=== PATIENT | female | born 1990 | race Asian ===

== ENCOUNTER 2017-04-09 03:57 | Outpatient (CLI) | payer OTHER | END 2017-04-09 03:58 | disposition critical access hospital (66) | LOC: EMS 03:57 | PROVIDERS: ATTEND Surgery | DX: O99.89 Other specified diseases and conditions complicating pregnancy, childbirth and the puerperium (principal); R06.02 Shortness of breath; M54.5 Low back pain | CPT/HCPCS: A0425; A0427 ==

== ENCOUNTER 2017-04-09 04:28 | Outpatient (CLI) | payer OTHER ==
[2017-04-09 04:42] VITALS: BP 105/58
[2017-04-09 05:06] LABS: BILIRUBIN,URINE NEGATIVE (NEGATIVE); GLUCOSE, URINE (UA) NEGATIVE (NEGATIVE); KETONES,URINE (UA) NEGATIVE (NEGATIVE); LEUKOCYTE ESTERASE, URINE NEGATIVE (NEGATIVE); NITRITE,URINE NEGATIVE (NEGATIVE); OCCULT BLOOD,URINE NEGATIVE (NEGATIVE); PH,URINE 6.5 PH (5.0-7.5); PROTEIN,URINE NEGATIVE (NEGATIVE); UROBILINOGEN,URINE 0.2 (NORMAL) E.U./dL (NORMAL)
[2017-04-09 05:30] LABS: BACTERIA,URINE None Seen /HPF (None Seen); CLARITY,URINE HAZY (CLEAR); RBC,URINE None Seen /HPF (0-5); SQUAMOUS EPITHELIAL CELL,UR MANY Squamous (<= Few)
[2017-04-09 06:33] LABS: BASOPHILS # (AUTO) 0.1 10^3/uL (0.0-0.1); BASOPHILS % (AUTO) 0.7 %; EOSINOPHILS # (AUTO) 0.2 10^3/uL (0.0-0.7); EOSINOPHILS % (AUTO) 1.7 %; HGB - HEMOGLOBIN 9.4 g/dL (12.0-16.0); LYMPHOCYTES # (AUTO) 2.1 10^3/uL (1.5-3.5); LYMPHOCYTES % (AUTO) 22.1 %; MEAN CORPUSCULAR HEMOGLOBIN 28.3 pg (27.0-31.0); MEAN CORPUSCULAR HGB CONC 32.4 g/dL (32.0-36.0); MEAN CORPUSCULAR VOLUME 87.2 fL (81.0-99.0); MEAN PLATELET VOLUME 7.6 fL (7.9-10.8); MONOCYTES # (AUTO) 0.6 10^3/uL (0.0-1.0); MONOCYTES % (AUTO) 6.3 %; NEUTROPHILS # (AUTO) 6.5 10^3/uL (1.5-6.6); NEUTROPHILS % (AUTO) 69.2 %; PLT - PLATELET COUNT 252 10^3/uL (130-450); RED BLOOD COUNT 3.32 10^6/uL (4.20-5.40); RED CELL DISTRIBUTION WIDTH 12.6 % (12.0-15.0); WHITE BLOOD COUNT 9.4 x10^3/uL (4.8-10.8)
--- NOTE | 2017-04-09 23:12 | Ultrasound Report ---
EXAM: ABDOMEN ULTRASOUND LIMITED, RUQ EXAM DATE: 04/09/2017 08:04 AM. CLINICAL HISTORY: Abdominal pain. Lower back pain. COMPARISON: None. TECHNIQUE: Real-time scanning was performed with static images obtained. FINDINGS: Liver: Normal in size. Echogenic echotexture. 13.1 cm. Main portal vein flow: Hepatopetal. Gallbladder: Normal. No stones, wall thickening, or sonographic Barnett's sign. Biliary System: CBD measures 3 mm. No intrahepatic or extrahepatic ductal dilatation. Other: The visualized pancreas and right kidney are unremarkable. No free fluid. IMPRESSION: 1. Unremarkable gallbladder and ducts. 2. Hepatic steatosis. [facility] Referring Provider Line: [phone] SITE ID: [id number]
--- NOTE | 2017-04-11 11:40 | HISTORY & PHYSICAL EXAMINATION ---
DATE OF SERVICE: 04/09/2017 Physician: Dayron Mcghee MD IDENTIFICATION: Mis is a 27-year-old G2, P1 female whose EDC is 05/19/2017. This makes her 34 weeks 2 days. CHIEF COMPLAINT: Right upper quadrant pain. HISTORY OF PRESENT ILLNESS: Patient last night developed right upper quadrant pain. It was quite severe in nature. It radiated to the right scapula. She gives a history of having lumpia with cheese prior to this. She states she has been having episodic right upper quadrant pain over the last month. She denies any history of any gallbladder disease or family history of any gallbladder disease. PAST MEDICAL HISTORY: Patient denies any hypertensive, diabetic, cardiac, or pulmonary disease. PAST SURGICAL HISTORY: Positive for left arm surgery at 7 years of age with skin grafting. ALLERGIES: BENZOYL PEROXIDE. CURRENT MEDICATIONS: vitamins. HABITS: She denies the use of alcohol, tobacco, or street or addictive drugs. SOCIAL HISTORY: Patient is to an [employer] duty [employer]. PHYSICAL EXAMINATION GENERAL: Patient is a well-developed, well-nourished female. She is in no acute distress at this time this morning. VITAL SIGNS: Normal at this time. HEENT: Pupils equal, round. Extraocular muscles are intact. There is no evidence of any scleral icterus. Mouth is clear. HEART: Regular rate and rhythm without murmurs. LUNGS: Lung muñoz are clear without rales or wheezes. ABDOMEN: Gravid. Uterus is nontender. There is obvious motion which was visualized. She has had a normal reactive NST. She is tender at the right upper quadrant over the gallbladder, duplicating the pain she is complaining of. There is no flank or CVA tenderness noted. STUDIES: Gallbladder ultrasound is currently pending at this time; radiologist needs to read this. IMPRESSION 1. A 27-year-old G2, P1 female, 34.2 weeks. 2. Gallbladder pain. PLAN: Patient was cautioned about eating fatty foods. At this particular time, would try not to do any kind of gallbladder surgery and need to postpone this until after the delivery of her child. She will be continuing with her appointments at the [facility]. Her next visit is to see Dr. Rocha. cc: Dr. Rocha TD: 04/09/2017 23:20 [facility]
== END 2017-04-09 09:55 | disposition home or self-care (01) ==
LOC: WFO 04:28 → FBP 04:34 → WFO 09:55
PROVIDERS: ATTEND Obstetrics & Gynecology
DX: O99.613 Diseases of the digestive system complicating pregnancy, third trimester (principal); K82.9 Disease of gallbladder, unspecified; Z3A.34 34 weeks gestation of pregnancy
CPT/HCPCS: 36415; 76705; 81001; 85025; 87086; 99214

== ENCOUNTER 2021-06-19 07:42 | Outpatient (CLI) | payer OTHER ==
--- NOTE | 2021-06-19 08:15 | XRAY Report ---
PROCEDURE: Chest 2 View X-Ray INDICATIONS: SCREENING FOR TB TECHNIQUE: 2 view(s) of the chest. COMPARISON: None. FINDINGS: SUPPORT DEVICES: None. LUNGS/PLEURA: No focal consolidation, pleural effusion or space-occupying pneumothorax. MEDIASTINUM: The cardiomediastinal silhouette is within normal limits. BONES/SOFT TISSUES: No acute abnormality. IMPRESSION: 1.No acute cardiopulmonary abnormality. Reviewed by: Kenji Jamil MD on 06/19/2021 8:14 AM PDT Approved by: Kenji Jamil MD on 06/19/2021 8:14 AM PDT Station ID: [id number]
== END 2021-06-19 23:59 | disposition home or self-care (01) ==
LOC: DI.N 07:42
PROVIDERS: ATTEND Family Medicine
DX: Z11.1 Encounter for screening for respiratory tuberculosis (principal)

== ENCOUNTER 2021-06-19 08:00 | Outpatient (CLI) | payer OTHER ==
[2021-06-19 12:46] LABS: ALBUMIN 4.2 g/dL (3.2-5.5); ALKALINE PHOSPHATASE 50 IU/L (42-121); ALT ALANINE AMINOTRANSFERASE 29 IU/L (10-60); AST ASPARTATE AMINOTRANSFERASE 30 IU/L (10-42); BILIRUBIN,TOTAL 0.6 mg/dL (0.2-1.0); TOTAL PROTEIN 7.9 g/dL (6.7-8.2)
[2021-06-19 12:54] LABS: BILIRUBIN,DIRECT < 0.1 mg/dL (0.1-0.5)
[2021-06-20 09:27] LABS: HEPATITIS B SURFACE ANTIGEN NON-REACTIVE (NON-REACTIVE)
[2021-06-22 14:03] LABS: NIL 0.03 IU/mL; TB1-NIL 0.01 IU/mL; TB2-NIL 0.03 IU/mL
== END 2021-06-19 23:59 | disposition home or self-care (01) ==
LOC: LAB.N 08:00
PROVIDERS: ATTEND Family Medicine
DX: Z11.1 Encounter for screening for respiratory tuberculosis (principal); Z13.818 Encounter for screening for other digestive system disorders
CPT/HCPCS: 36415; 80076; 86317; 86480; 86704; 86709; 87340

== ENCOUNTER 2021-10-26 08:00 | Outpatient (CLI) | payer OTHER ==
--- NOTE | 2021-10-26 15:36 | XRAY Report ---
PROCEDURE: Chest 2 View X-Ray INDICATIONS: CHEST PX TECHNIQUE: 2 view(s) of the chest. COMPARISON: None. FINDINGS: Surgical changes and devices: None. Lungs and pleura: No pleural effusions or pneumothorax. Lungs are clear. Mediastinum: Mediastinal contours are normal. Heart size is normal. Bones and chest wall: No suspicious bony abnormalities. Soft tissues appear unremarkable. IMPRESSION: No acute cardiopulmonary findings. Reviewed by: Eufemia Dorman MD on 10/26/2021 3:34 PM PDT Approved by: Eufemia Dorman MD on 10/26/2021 3:34 PM PDT Station ID: [id number]
== END 2021-10-26 23:59 | disposition home or self-care (01) ==
LOC: DI.N 08:00
PROVIDERS: ATTEND Physician Assistant Medical
DX: R07.9 Chest pain, unspecified (principal)
CPT/HCPCS: 36415; 80048; 84443; 85027